=== PATIENT | male | born 1950 | race Caucasian/White ===

== ENCOUNTER 2023-04-16 01:20 | Emergency (ER) | payer MEDICARE, SELFPAY ==
[2023-04-16 01:21] VITALS: BP 159/121; PULSE 98; RESP 16; TEMP 36.2; O2SAT 98; BMI 22.8
--- NOTE | 2023-04-16 01:29 | CT_ITS ---
EXAM: CT ABDOMEN AND PELVIS WITHOUT INTRAVENOUS CONTRAST CLINICAL INDICATION: Kidney Stone TECHNIQUE: Helically acquired images were obtained of the abdomen and pelvis without intravenous contrast. This CT exam was performed using one or more of the following dose reduction techniques: automated exposure control, adjustment of the mA and/or kV according to patient size, and/or use of iterative reconstruction technique. RADIATION DOSE: CTDIvol = 6.16 mGy, DLP = 333.24 mGy-cm COMPARISON: No relevant prior studies available. FINDINGS: LOWER THORAX: The heart is not fully included. Lung bases are clear. No significant pericardial effusion. ABDOMEN: LIVER: At least one suspected hepatic cyst, 9 mm. Not fully characterized on unenhanced CT. GALLBLADDER AND BILE DUCTS: Small stone layering proximally in the gallbladder body, no evidence of acute cholecystitis. No intra- or extrahepatic biliary ductal dilation. PANCREAS: Unremarkable. No focal cystic mass. SPLEEN: Unremarkable. Normal size without focal cystic or solid mass. ADRENALS: Unremarkable. No nodules. KIDNEYS AND URETERS: Mild left hydroureteronephrosis to the level of a 3 mm x 2 mm x 2 mm stone in the distal left ureter medially adjacent to the left UVJ. Left renal pelvis is 1.3 cm AP, left proximal ureter 1 cm, mid ureter 7 mm. No additional stones in the kidneys. Mild left perinephric soft tissue stranding. Indeterminate cystic lesions of the kidneys, including 2.2 cm x 2.7 cm x 2.4 cm left upper anterior hypodense lesion well-circumscribed 6.9 cm x 5.2 cm x 5.6 cm. Lesion at the lower pole right kidney, smaller right 1.2 cm hypodense lesion. STOMACH AND BOWEL: Mildly prominent small bowel content and moderate gas and stool throughout most of the colon. No stomach or bowel distention. No focal inflammatory change. PELVIS: APPENDIX: No evidence of acute appendicitis. BLADDER: See below. REPRODUCTIVE: Prominent prostatomegaly, 5.3 cm x 4.7 cm x 5.6 cm with impression on the bladder base. ABDOMEN and PELVIS: INTRAPERITONEAL SPACE: Unremarkable. No ascites or other fluid collection. No free air. BONES/JOINTS: Degenerative spine changes, most pronounced at L4-5 with disc space narrowing, multilevel disc space narrowing and at least annular disc bulges. No suspicious lytic or blastic abnormality. SOFT TISSUES: Unremarkable. No discrete abdominal or pelvic wall hernia. VASCULATURE: Peripheral calcification of aortoiliac vessels, no octavio aneurysm or evidence of dissection. LYMPH NODES: Unremarkable. No enlarged lymph nodes. CT/Abdomen/Pelvis without Cont IMPRESSION: 1. Mild left hydroureteronephrosis to the level of a 3 mm x 2 mm stone in the distal left ureter. 2. Moderate prostatomegaly. 3. Moderate colon contents. 4. Multiple and bilateral hypodense renal lesions, statistically likely cysts but they are not fully characterized on unenhanced CT. Recommendations: Consider comparison to any available prior exams or follow-up renal protocol CT or MRI to exclude complex cystic mass. 5. Cholelithiasis. Electronically Signed: Julee Christopher MD at 3:07 EST ,
[2023-04-16] MEDS: 0.9% Normal Saline (1000mL) 1,000 ML 250 ML IV (01:30)
--- NOTE | 2023-04-16 01:30 | ED.VIS.GI ---
HPI HPI - GI History of Present Illness Chief Complaint: Abd Pain Informant: patient and spouse/S.O. Narrative Narrative: History of BPH, hypertension, hyperlipidemia, diabetes, Parkinson's disease, stage III chronic kidney disease, seizure history, kidney stone history x 1 presents intermittent left side pain for the last month is mild deceiving get more intense rating down his groin causing nausea. Currently subsided. No dysuria or frequency. History of 1 kidney stone in the past with no intervention required. States feels similar but different than previous kidney stone. Normal bowel movements, nonbloody. PFSH PFSH Medical History Diabetes Enlarged prostate Hyperlipidemia Hypertension Kidney stones Parkinson disease Home Medications ondansetron 4 mg disintegrating tablet 4 mg PO Q8H PRN PRN Nausea #10 tabs 04/16/23 [Rx Last Taken Unknown] oxycodone-acetaminophen 5 mg-325 mg tablet 1 tab PO Q6H PRN PRN Pain 3 days #12 TABLETS 04/16/23 [Rx Last Taken Unknown] Allergy/AdvReac Type Severity Reaction Status Date / Time [id number] Reductase AdvReac Other Verified 04/16/23 01:24 Inhibitor Social History Smoking Status: Never smoker ROS ROS ED Constitutional Constitutional ED: Denies chills, fever(s) or sweats Eyes Eyes: Denies change in vision ENT ENT ED: Denies dysphagia or sore throat Cardiovascular Cardiovascular: Denies chest pain, leg edema, palpitations or racing heartbeat Respiratory/Chest Respiratory/Chest: Denies cough, dyspnea or dyspnea on exertion Gastrointestinal Gastrointestinal: Reports abdominal pain; Denies diarrhea, nausea or vomiting Genitourinary Genitourinary ED: Denies dysuria, hematuria or urinary frequency Musculoskeletal Musculoskeletal: Denies back pain, extremity pain or neck pain Integumentary Denies rash or wounds Neurologic Neurologic: Denies headache(s), paresthesias or weakness EXAM Physical Exam Const Vital Signs: 04/16/23 01:21 Temperature 97.2 F L Temperature Source Temporal Pulse Rate 98 Respiratory Rate 16 Blood Pressure 159/121 H Blood Pressure Mean 133 Pulse Ox 98 Oxygen Delivery Method Room Air Positive well nourished and well developed Constitutional Narrative: Parkinsonian movements of the upper torso and head. General Appearance ED: well developed and NAD HEENT Reports moist mucous membranes normocephalic and atraumatic Eyes PERRL, EOMs intact bilaterally and conjunctivae normal General Eye ED: Yes normal appearance of both eyes Neck no lymphadenopathy and supple General: Negative for tenderness Chest Wall Chest: Negative for tenderness Resp normal respiratory effort and normal air movement Effort and Inspection: symmetric chest movement; Negative for respiratory distress Cardio regular rate, regular rhythm and no murmurs Peripheral Pulses: pulses 2+ throughout GI normal to inspection, nondistended, normoactive bowel sounds and non-tender GI Narrative: No rash. No reproducible tenderness. No guarding or rebound Palpation: Negative for guarding or rebound tenderness present Back/Spine no CVA tenderness and no thoracic nor lumbar tenderness Extremity normal to inspection General Extremety ED: Negative for edema or tenderness General Extremity: Negative for edema Neuro oriented x3 and no sensory deficits noted Sensorium / Orientation: awake and alert Skin no rashes or lesions noted and no wounds MDM MDM MDM Narrative Medical decision making narrative: Interventions / MDM: Differential diagnosis: Kidney stone, renal colic Diagnosis considered but do not suspect: No clinical diverticulitis My EKG interpretation: N/A Imaging independently reviewed and interpreted by myself: CT scan abdomen pelvis: 2-3 mm left UVJ stone with hydro-. External documents reviewed: N/A Test considered but not ordered:N/A ED course: Symptoms currently subsided, history concerning for renal colic symptoms. Renal stone protocol initiated. He declines any medications at this time. CT abdomen pelvis without contrast. 0205: Symptoms subsided at this time. Wet read per myself on CT scan concerning for 2-3mm left UVJ stone with hydro-. White count 8.31 for an. Creatinine 1.46 potassium 4.2. History of CKD stage III. Urine have not RBCs 25 leukocytes however negative nitrites and white cells. Urine culture sent. Clinically denies urinary tract infection symptoms. 0300: Final read from radiology confirms 3 x 2 mm discharge ureteral stone near the UVJ. Cholelithiasis and renal cyst noted. I discussed the findings with the patient along with incidental findings. He has known renal cysts per patient. Meds to bed with avoiding NSAIDs with his CKD history. Outpatient follow-up with his urologist Dr. Douglas, return precaution discussed. All questions were answered. Re-evaluation: stable Disposition discussed with patient/family/significant other: Patient and significant other Case discussed with consulting clinician: N/A This note was generated with [employer] dictation software. It may contain incorrect words, spelling, and punctuation that were not noted in checking the note before signing. Lab Data Attestation: I reviewed the patient's lab results. Labs: Laboratory Results - last 24 hr 04/16/23 01:35 WBC 8.7 RBC 4.93 Hgb 15.0 Hct 44.6 MCV 90.5 MCH 30.4 MCHC 33.6 RDW Std Deviation 41.2 RDW Coeff of Michelle 12.4 Plt Count 231 MPV 11.4 Immature Gran % (Auto) 0.300 Neut % (Auto) 62.1 Lymph % (Auto) 24.8 [place] % (Auto) 9.6 Eos % (Auto) 2.5 Baso % (Auto) 0.7 Absolute Neuts (auto) 5.4 Absolute Lymphs (auto) 2.17 Nucleated RBC % 0 Differential Comment SCANNED Platelet Estimate ADEQUATE Sodium 138 Potassium 4.2 Chloride 105 Carbon Dioxide 27.0 Anion Gap 6 BUN 20 H Creatinine 1.46 H Estim Creat Clear Calc 42.13 Est GFR (MDRD) Af Amer 61 Est GFR (MDRD) Non-Af 50 L BUN/Creatinine Ratio 13.7 Glucose 184 H Calcium 8.4 L Urine Color Yellow Urine Clarity Clear Urine pH 6.5 Ur Specific [place] 1.015 Urine Protein 30 H Urine Glucose (UA) 250 H Urine Ketones 5 H Urine Occult Blood 250 H Urine Nitrite Negative Urine Bilirubin Negative Urine Urobilinogen Normal Ur Leukocyte Esterase 25 H Urine RBC 50-100 SEEN Urine WBC 0 SEEN Ur Squamous Epith Cells 0 SEEN Urine Bacteria RARE Urine Mucus 0 SEEN Radiography Diagnostic Testing: Clinical Impression(s) from Imaging Studies Abdomen/Pelvis CT 04/16/23 01:29 IMPRESSION: 1. Mild left hydroureteronephrosis to the level of a 3 mm x 2 mm stone in the distal left ureter. 2. Moderate prostatomegaly. 3. Moderate colon contents. 4. Multiple and bilateral hypodense renal lesions, statistically likely cysts but they are not fully characterized on unenhanced CT. Recommendations: Consider comparison to any available prior exams or follow-up renal protocol CT or MRI to exclude complex cystic mass. 5. Cholelithiasis. Electronically Signed: Julee Christopher MD at 3:07 EST , Discharge Plan Triage Chief Complaint: Abd Pain ED Provider: Jef Rosales Dx/Rx/DC Orders Clinical Impression: Hematuria, Urolithiasis, Renal colic on left side, History of Parkinson's disease, CKD (chronic kidney disease), Cholelithiasis Instructions: ED Kidney Stone w/ Colic Prescriptions: New oxycodone-acetaminophen [oxycodone-acetaminophen] 5-325 mg tablet 1 tab PO Q6H PRN PRN (Reason: Pain) 3 Days Qty: 12 0RF ondansetron [ondansetron] 4 mg tablet,disintegrating 4 mg PO Q8H PRN PRN (Reason: Nausea) Qty: 10 0RF Primary Care Provider: Najma Freeman Referrals: Arun Douglas MD [Non-Staff] - 5-7 Days Najma Freeman MD [Primary Care Provider] - Activity Restrictions/Additional Instructions: Creatinine 1.46 with GFR at 50. No history of CKD. Take pain and nausea medicine as prescribed. 3 mm stone seen in the left distal ureter near your UVJ. Follow-up with your urologist. Take medicines as prescribed. If symptoms not controlled with medications return to the ED for reevaluation. Disposition Disposition: Home, Self Care
[2023-04-16 01:49] LABS: Mucous, Urine 0 SEEN /hpf (<or=2+); Squamous Epithelial Cells - UA 0 SEEN /hpf (0-5); White Blood Cells 0 SEEN /hpf (0-5)
[2023-04-16 01:51] LABS: Color, Urine Yellow (Yellow); Glucose, Dipstick 250 mg/dl (Normal); Ketone-Dipstick 5 mg/dl (Negative); Leukocyte Esterase-Dipstick 25 /ul (Negative); Nitrite-Dipstick Negative (Negative); Occult Blood-Urine 250 /ul (Negative); Protein-Dipstick 30 mg/dl (Negative); Specific Gravity, Urine 1.015 (1.002-1.030); Urine Bilirubin Dipstick Negative (Negative); Urine Clarity Clear (Clear); Urine Urobilinogen Normal (Normal); Urine pH 6.5 (5.0 - 8.0)
[2023-04-16 01:52] LABS: Absolute Lymphocyte Count 2.17 X10^3/uL (0.83-4.51); Absolute Neutrophil Count 5.4 X10^3/uL (2.0-7.7); Basophil# 0.06 X10^3/uL; Basophil% 0.7 % (0-1); Eosinophil# 0.22 X10^3/uL; Eosinophils% 2.5 % (0-5); Hematocrit 44.6 % (40-54); Lymphocyte # 2.17 X10^3/ul (0.83-4.51); Lymphocyte % 24.8 % (19-41); Mean Corp Hgb Conc 33.6 g/dL (32-36); Mean Corpuscular Hgb 30.4 pg (27.0-32.0); Mean Corpuscular Volume 90.5 fL (80-94); Mean Platelet Vol. 11.4 fl (6.2-12.0); Monocyte# 0.84 X10^3/uL; Monocyte% 9.6 % (0-10); NRBC Flagged by Analyzer 0 % (0-5); Neutrophil # 5.42 X10^3/uL (2.7-7.7); Neutrophil % 62.1 % (47-70); POSITIVE COUNT YES; Platelet Count 231 K/mm3 (150-450); RBC Distribution Width CV 12.4 % (11.6-14.6); RBC Distribution Width SD 41.2 fl (35.1-43.9); Red Blood Count 4.93 M/mm3 (4.6-6.2); White Blood Count 8.7 K/mm3 (4.4-11.0)
[2023-04-16 01:54] LABS: Differential Indicated SCAN CRITERIA MET
[2023-04-16 02:01] LABS: Bacteria RARE /hpf (None Seen); Red Blood Cells-Urine 50-100 SEEN /hpf (0-5)
[2023-04-16 02:05] LABS: Anion Gap 6 (5-15); BUN 20 mg/dL (7-18); BUN/Creat Ratio 13.7 RATIO (10-20); Calcium,Total 8.4 mg/dL (8.5-10.1); Chloride 105 mmol/L (98-107); Creatinine, Serum 1.46 mg/dL (0.70-1.30); EST Glomerular Filtration Rate 50 mL/min (>60); Est Glom Filt Rate - Afr Amer 61 mL/min (>60); Estimated Creatinine Clearance 42.13 ml/min; Glucose 184 mg/dL (74-106); Potassium 4.2 mmol/L (3.5-5.1); Sodium Level 138 mmol/L (136-145)
[2023-04-16 02:06] LABS: Differential Comment SCANNED; Platelet Estimate ADEQUATE (ADEQ)
[2023-04-16 03:23] VITALS: PULSE 72; RESP 18; O2SAT 100
== END 2023-04-16 03:40 | disposition home or self-care (01) ==
PROVIDERS: Emergency Provider Emergency Medicine; PCP Internal Medicine; Visit Provider Emergency Medicine
DX: N13.2 Hydronephrosis with renal and ureteral calculous obstruction (principal); E11.22 Type 2 diabetes mellitus with diabetic chronic kidney disease; N18.30 Chronic kidney disease, stage 3 unspecified; E78.5 Hyperlipidemia, unspecified; I12.9 Hypertensive chronic kidney disease with stage 1 through stage 4 chronic kidney disease, or unspecified chronic kidney disease; N23 Unspecified renal colic; R31.9 Hematuria, unspecified; G20.A1 Parkinson's disease without dyskinesia, without mention of fluctuations
CPT/HCPCS: 74176; 80048; 81001; 85025; 87086; 87088; 96360; 96361; 99282; A4216